=== PATIENT | female | born 1940 | race Caucasian/White ===

== ENCOUNTER 2018-02-17 14:28 | Inpatient (IN) ==
--- NOTE | 2018-02-17 15:10 | Emergency Department Note ---
Disposition Clinical Impression: Urinary tract infection Qualifiers: Urinary tract infection type: acute cystitis Hematuria presence: without hematuria Qualified Code(s): N30.00 - Acute cystitis without hematuria Disposition: Admitted As Inpatient Condition: Good Referrals: Julio Lizarraga Jr, MD [Primary Care Provider] - Forms: ED Satisfaction Letter Time of Disposition: 16:39 Female Urogenital HPI - General Chief complaint: ED Urogenital-Female Stated complaint: urinary symptoms Time Seen by Provider: 02/17/18 14:40 Source: patient Mode of arrival: ambulatory Limitations: no limitations, age Nursing Notes Reviewed: Yes Vital Signs Reviewed: Yes - History of Present Illness HPI Narrative: 77-year female who comes in complaining of urinary symptoms. She has been on 2 different antibiotics cultures done at her doctor's office state that the is only sensitive to IV antibiotics. The cultures were not done in our system we will try to get a hold of the doctor who did them and get the culture results. Pt Subjective Complaint: "UTI" Onset (ago): week(s) Location: suprapubic (2) Severity: mild, moderate Quality: burning Duration: constant Improves with: none Worsens with: urination Urinary Symptoms: dysuria, urgency, frequency - Related Data Allergies Allergy/AdvReac Type Severity Reaction Status Date / Time Sulfa (Sulfonamide Allergy Hives Verified 02/17/18 14:30 Antibiotics) All systems ED: reviewed and negative except as stated. Constitutional: Denies: fever, chills, weakness, weight change Eyes: Denies: eye pain, eye discharge, vision change ENT ED: Denies: ear pain, throat pain, dental pain, hearing loss, epistaxis, congestion, dysphagia Cardiovascular: Denies: chest pain, palpitations, dyspnea on exertion, edema, syncope Respiratory: Denies: cough, dyspnea, wheezes, hemoptysis, stridor Gastrointestinal: Denies: abdominal pain, nausea, vomiting, diarrhea, constipation, hematemesis, melena, hematochezia Genitourinary: Reports: dysuria, frequency, hematuria. Denies: discharge Musculoskeletal: Denies: back pain, neck pain, arthralgia, myalgia Integumentary: Denies: rash, abrasion, lesions Neurological: Denies: headache, weakness, numbness, paresthesias, confusion, abnormal gait, vertigo Psychiatric: Denies: anxiety, depression, suicidal thoughts, homicidal thoughts , auditory hallucinations, visual hallucinations Endocrine: Denies: fatigue Hematological/Lymphatic: Denies: easy bleeding, easy bruising Allergic/Immunologic: Denies: facial swelling, urticaria Physical Exam - General Limitations: no limitations General appearance: alert, in no apparent distress - Head Head exam: atraumatic, normocephalic, normal inspection - Eye Eye exam: Present: normal appearance, PERRL, EOMI - Expanded Eye Exam Pupils: Left: reactive - ENT ENT exam: normal exam, normal oropharynx, mucous membranes moist - Expanded ENT Exam External ear exam: Present: normal external inspection Mouth exam: Present: normal external inspection Teeth exam: Present: normal inspection Throat exam: Present: normal inspection - Neck Neck exam: Present: normal inspection, full ROM, trachea midline - Chest Chest inspection: Present: normal inspection, symmetric chest wall rise - Respiratory Respiratory exam: Present: normal lung sounds bilaterally - Cardiovascular Cardiovascular exam: Present: regular rate, normal rhythm, normal heart sounds - Abdominal Exam Abdominal exam: Present: soft, Non-Tender. Absent: tenderness, distention, guarding, rebound, rigidity - Extremities Exam Extremities exam: Present: normal inspection, full ROM. Absent: tenderness, pedal edema - Expanded Upper Extremity Exam Shoulder exam: Present: normal inspection, full ROM Arm exam: Present: normal inspection, full ROM Elbow exam: Present: normal inspection, full ROM Forearm/Wrist exam: Present: normal inspection, full ROM Hand exam: Present: normal inspection, full ROM Vascular exam: Normal: capillary refill, radial pulse - Expanded Lower Extremity Exam Hip/Pelvis exam: Present: normal inspection, full ROM Upper leg exam: Present: normal inspection, full ROM Knee exam: Present: normal inspection, full ROM Lower leg exam: Present: normal inspection, full ROM Ankle exam: Present: normal inspection, full ROM Foot/toe exam: Present: normal inspection, full ROM Neurovascular/Tendon exam: Absent: motor deficit, sensory deficit, tendon deficit - Back Exam Back exam: Present: normal inspection, full ROM. Absent: tenderness - Neurological Exam Neurological exam: Present: alert, oriented X3 - Expanded Neurological Exam Patient oriented to: Present: person, place, time Coma Scale Eye Opening: Spontaneous Coma Scale Motor Response: Obeys Commands Coma Scale Verbal Response: Oriented Coma Scale Total: 15 - Psychiatric Psychiatric exam: Present: normal affect, normal mood - Skin Skin exam: Present: warm, dry, intact, normal color Course - Reevaluation(s) Reevaluation #1: We were able to obtain the sensitivities of the urine on the patient is sent out to an outside lab. The only oral antibiotic the patient patient's urine is sensitive to is Bactrim and she is allergic to that. The patient grew out greater than 100,000 Providencia rettgeri. The patient's been treated outpatient 2 rounds of antibiotics without improvement. I did review her culture results which show she is not able to take any antibiotics orally. That is Tuesday afternoon were not able to arrange outpatient treatment until first of the week several bringer render IV Rocephin. Time: 16:37 - Consultations Consultation #1: Discussed with Dr.Seth salcedo. Time: 16:51 Vital Signs Temperature 97.7 F 02/17/18 14:30 Pulse Rate 75 02/17/18 14:30 Respiratory Rate 18 02/17/18 14:30 Blood Pressure 175/79 02/17/18 14:30 O2 Sat by Pulse Oximetry 97 02/17/18 14:30 Temperature 97.7 F 02/17/18 14:38 Pulse Rate 75 02/17/18 14:38 Respiratory Rate 18 02/17/18 14:38 Blood Pressure 175/79 02/17/18 14:38 O2 Sat by Pulse Oximetry 97 02/17/18 14:38 Oxygen Delivery Oxygen Delivery Room Air Urogenital-Female - Lab Data Lab results reviewed: Yes I reviewed the patient's lab results. Result diagrams: 02/17/18 15:17 02/17/18 15:17 Lab Results 02/17/18 02/17/18 02/17/18 Range/Units 14:45 15:17 15:17 WBC 6.5 (4.3-11.1) K/mcL RBC 4.07 (3.82-4.97) M/mcL Hgb 10.4 L (11.5-15.4) g/dL Hct 32.9 L (35.3-44.9) % MCV 80.8 L (83.0-100.0) fL MCH 25.6 L (28.0-33.3) pg MCHC 31.6 (31.6-35.5) g/dL RDW 14.6 H (11.5-14.5) % Plt Count 261 (140-400) K/mcL MPV 9.6 (9.4-12.4) fL Immature Gran % 0.3 (0-4) % Seg Neutrophils % 58.3 % Lymphocytes % 27.7 % Monocytes % 8.2 % Eosinophils % 4.6 % Basophils % 0.9 % Neutrophils # 3.8 (1.6-8.9) K/mcL Lymphocytes # 1.8 (0.6-4.6) K/mcL Monocytes # 0.5 (0.0-1.3) K/mcL Eosinophils # 0.3 (0.0-0.6) K/mcL Basophils # 0.1 (0.0-0.2) K/mcL Sodium 139 (136-145) mEq/L Potassium 4.2 (3.5-5.1) mEq/L Chloride 106 (98-107) mEq/L Carbon Dioxide 25 (23-29) mEq/L BUN 15 (8-23) mg/dL Creatinine 0.88 (0.60-1.20) mg/dL Est GFR ( Amer) > 60 (> 60) Est GFR (Non-Af Amer) > 60 (> 60) BUN/Creatinine Ratio 17 (6-26) Glucose 112 H (70-105) mg/dL Calculated Osmolality 290 (280-300) Calcium 9.6 (8.6-10.3) mg/dL Urine Color Yellow (Yellow) Urine Clarity Cloudy A (Clear) Urine pH 6.0 (5.0-8.0) pH Units Ur Specific [place] 1.014 (1.010-1.025) Urine Protein Negative (Neg-Trace) mg/dL Urine Glucose (UA) Normal (Normal) mg/dL Urine Ketones Negative (Negative) mg/dL Urine Blood Moderate H (Negative) Urine Nitrite Negative (Negative) Urine Bilirubin Negative (Negative) Urine Urobilinogen Normal (Normal) mg/dL Ur Leukocyte Esterase Large H (Negative) Urine Microscopic RBC 5-15 H (0-3) per hpf Urine Microscopic WBC TNTC H (0-3) per hpf Ur Squamous Epith Cells Moderate H (None-Few) per lpf Ur Renal Epithelial Cell Few (None-Few) per hpf Urine Bacteria Moderate H (None-Few) per hpf Ur Culture Indicated? YES A (NO)
[2018-02-17 15:26] LABS: Basophils # 0.1 K/mcL (0.0-0.2); Basophils % 0.9 %; Eosinophils # 0.3 K/mcL (0.0-0.6); Eosinophils % 4.6 %; Hematocrit 32.9 % (35.3-44.9); Hemoglobin 10.4 g/dL (11.5-15.4); Immature Granulocytes % 0.3 % (0-4); Lymphocytes # 1.8 K/mcL (0.6-4.6); Lymphocytes % 27.7 %; Mean Corpuscular HGB Conc 31.6 g/dL (31.6-35.5); Mean Corpuscular Hemoglobin 25.6 pg (28.0-33.3); Mean Corpuscular Volume 80.8 fL (83.0-100.0); Mean Platelet Volume 9.6 fL (9.4-12.4); Monocytes # 0.5 K/mcL (0.0-1.3); Monocytes % 8.2 %; Neutrophils # 3.8 K/mcL (1.6-8.9); Platelet Count 261 K/mcL (140-400); Red Blood Count 4.07 M/mcL (3.82-4.97); Red Cell Distribution Width 14.6 % (11.5-14.5); Segmented Neutrophils % 58.3 %
[2018-02-17 15:54] LABS: BUN/Creatinine Ratio 17 (6-26); Blood Urea Nitrogen 15 mg/dL (8-23); Calcium 9.6 mg/dL (8.6-10.3); Carbon Dioxide 25 mEq/L (23-29); Chloride 106 mEq/L (98-107); Glucose 112 mg/dL (70-105); Osmolality,Calculated 290 (280-300); Potassium 4.2 mEq/L (3.5-5.1); Sodium 139 mEq/L (136-145); eGFR For African Americans > 60 (> 60); eGFR For Non-African Americans > 60 (> 60)
[2018-02-17 16:19] LABS: Bilirubin,Urine Negative (Negative); Blood,Urine Moderate (Negative); Clarity,Urine Cloudy (Clear); Color,Urine Yellow (Yellow); Glucose,Urine (UA) Normal (Normal); Ketones,Urine Negative (Negative); Leukocyte Esterase,Urine Large (Negative); Nitrite,Urine Negative (Negative); Protein,Urine Negative (Neg-Trace); Specific Gravity,Urine 1.014 (1.010-1.025); Urobilinogen,Urine Normal (Normal)
[2018-02-17 16:35] LABS: Renal Epithelial Cells,Urine Few per hpf (None-Few); Squamous Epithelial Cell,Urine Moderate per lpf (None-Few)
[2018-02-17 16:36] LABS: WBC,Urine TNTC per hpf (0-3)
[2018-02-17 16:37] LABS: Bacteria,Urine Moderate per hpf (None-Few)
[2018-02-17] MEDS ORDERED: cefTRIAXone 1,000 MG in Water for inj. (sterile) 20 ML 10 ML IVP ONE (16:51)
[2018-02-17] MEDS ORDERED: Naloxone 0.4 MG/ML INJ IVP PRN (17:34)
--- NOTE | 2018-02-17 17:40 | Internal Med History&Physical ---
Date of Encounter: 02/17/18 Time of Encounter: 17:35 Internal Medicine - H&P: HPI Chief complaint: Urine complaint Admitted From: Home Plans for Post Hospital Care: Home History of present illness: Ms. Praksah is a 77 year old female with history of hypertension, hyperlipidemia, GERD, recurrent UTI but never got evaluated by urologist came to ER with complaint of persistent urinary symptoms even after having 2 different antibiotic courses on OPD basis possibly ciprofloxacin and cephalosporin. In ER vitals are stable with normal white count but abnormal urine analysis. ER physician collected the urine culture report ordered by PCP on Feb 14 2018 with bacteria, Providencia that is multi drug resistant especially oral antibiotic except Bactrim but patient is allergic to it. Therefore ER physician called on- call hospitalists for the admission of IV antibiotic and further evaluation. Patient has chronic urinary problem especially increased frequency and urgency but lately getting worse along with burning micturition. Patient denies fever, chills, vomiting, headache, dizziness, chest pain, shortness of breath, abdominal pain,bowel complaint. Sometime she get nausea, fatigue and generalized weakness Past Med Surg Social Fam HX - Past Medical History Medical history: hyperlipidemia, hypertension, TIA Psychiatric history: no psych history - Social History Smoking Status: Never smoker Smokeless Tobacco Status: No Alcohol use: none Drug use: none Internal Medicine - H&P: Meds Aspirin [Lo-Dose Aspirin EC] 81 mg PO DAILY 02/17/18 [History] Atorvastatin [Lipitor] 10 mg PO HS 02/17/18 [History] Esomeprazole Magnesium [Nexium] 40 mg PO DAILY 02/17/18 [History] Famotidine [Pepcid] 40 mg PO DAILY 02/17/18 [History] Labetalol [Trandate] 100 mg PO BID 02/17/18 [History] Olmesartan Medoxomil [Benicar] 40 mg PO DAILY 02/17/18 [History] 3 Allergy/AdvReac Type Severity Reaction Status Date / Time Sulfa (Sulfonamide Allergy Hives Verified 02/17/18 14:30 Antibiotics) All Systems PM: as documented above in the HPI. - Constitutional Vitals: Temp Pulse Resp BP Pulse Ox 97.7 F 68 15 192/84 98 02/17/18 14:38 02/17/18 17:16 02/17/18 17:16 02/17/18 17:16 02/17/18 17:16 Exam: General appearance: No acute distress, A&O X 3. Poor historian. Family at bedside Head exam: Atraumatic Eye exam: EOMI, PERRLA ENT exam: Moist oral mucosa Neck nontender, supple Respiratory exam: Clear to auscultation bilaterally Cardiovascular exam: Regular rate and rhythm, no systolic murmur Abdominal exam: Soft, nontender, nondistended, positive bowel sounds Extremities exam: No calf tenderness, no pedal edema Present: Skin-no rash, warm, dry, intact Neurological exam: Alert, awake, oriented 3, CN II-XII intact, no focal deficits. No facial droop. Normal speech. Normal gait. Internal Med - H&P Results - Labs CBC & Chem 7: 02/17/18 15:17 02/17/18 15:17 Labs: Short CBC 02/17/18 Range/Units 15:17 WBC 6.5 (4.3-11.1) K/mcL Hgb 10.4 L (11.5-15.4) g/dL Hct 32.9 L (35.3-44.9) % Plt Count 261 (140-400) K/mcL Neutrophils # 3.8 (1.6-8.9) K/mcL BMP 02/17/18 15:17 Sodium 139 Potassium 4.2 Chloride 106 Carbon Dioxide 25 BUN 15 Creatinine 0.88 Glucose 112 H Calcium 9.6 Urine 02/17/18 Range/Units 14:45 Urine Color Yellow (Yellow) Urine Clarity Cloudy A (Clear) Urine pH 6.0 (5.0-8.0) pH Units Ur Specific [place] 1.014 (1.010-1.025) Urine Protein Negative (Neg-Trace) mg/dL Urine Glucose (UA) Normal (Normal) mg/dL - Assessment and plan (1) UTI (urinary tract infection) Current Visit: Yes Status: Acute Assessment and plan: Recurrent UTI. Never got urology evaluation. At present persistent urinary symptom failed outpatient therapy with to round of antibiotic. Urine culture multi drug resistant organism. Started Rocephin IV. Urine culture and consulted urologists Qualifiers: Urinary tract infection type: site unspecified Hematuria presence: with hematuria Qualified Code(s): N39.0 - Urinary tract infection, site not specified; R31.9 - Hematuria, unspecified (2) Hypertension Current Visit: Yes Status: Chronic Assessment and plan: Close monitoring. Continue home medicine Qualifiers: Hypertension type: essential hypertension Qualified Code(s): I10 - Essential (primary) hypertension (3) Hyperlipidemia Current Visit: Yes Status: Acute Assessment and plan: Continue home medicine. stable Qualifiers: Hyperlipidemia type: unspecified Qualified Code(s): E78.5 - Hyperlipidemia , unspecified (4) DVT prophylaxis Current Visit: Yes Status: Acute Assessment and plan: SCDs - Time Spent With Patient Total time spent is greater than 50% in coordination of care (as documented) at patient's floor/unit and/or counseling patient: 25 - 35 minutes
[2018-02-18 05:36] LABS: Basophils % 0.6 %; Eosinophils # 0.3 K/mcL (0.0-0.6); Eosinophils % 4.5 %; Hematocrit 31.4 % (35.3-44.9); Immature Granulocytes % 0.3 % (0-4); Lymphocytes % 28.8 %; Mean Corpuscular HGB Conc 31.8 g/dL (31.6-35.5); Mean Corpuscular Hemoglobin 25.6 pg (28.0-33.3); Mean Corpuscular Volume 80.3 fL (83.0-100.0); Mean Platelet Volume 9.9 fL (9.4-12.4); Monocytes # 0.7 K/mcL (0.0-1.3); Monocytes % 9.7 %; Neutrophils # 3.8 K/mcL (1.6-8.9); Platelet Count 245 K/mcL (140-400); Red Blood Count 3.91 M/mcL (3.82-4.97); Red Cell Distribution Width 14.6 % (11.5-14.5); Segmented Neutrophils % 56.1 %
[2018-02-18 05:54] LABS: BUN/Creatinine Ratio 18 (6-26); Blood Urea Nitrogen 17 mg/dL (8-23); Calcium 9.4 mg/dL (8.6-10.3); Carbon Dioxide 27 mEq/L (23-29); Chloride 106 mEq/L (98-107); Glucose 99 mg/dL (70-105); Osmolality,Calculated 292 (280-300); Potassium 3.5 mEq/L (3.5-5.1); Sodium 140 mEq/L (136-145); eGFR For African Americans > 60 (> 60); eGFR For Non-African Americans 58 (> 60)
[2018-02-18] MEDS ORDERED: Famotidine 20 MG TABLET PO SCH (09:00)
--- NOTE | 2018-02-18 09:35 | Urology - Consult Note ---
Date of Encounter: 02/18/18 Time of Encounter: 09:33 - Assessment and Plan (1) Midline cystocele Current Visit: Yes Status: Acute Assessment and plan: Continue with pessary at this time. Patient is satisfied with the comfort level and improvement in her cystocele and rectocele with pessary. (2) UTI (urinary tract infection) Current Visit: Yes Status: Acute Assessment and plan: Patient now admitted secondary to multidrug resistant urinary tract infection. Only oral anabiotic the patient is sensitive to his Bactrim which she is allergic to. At this time I recommend full course treatment of 7-10 days of IV Rocephin. Patient will need to follow-up with me one month after this hospitalization. I have some question whether her recurrent infections are truly symptomatic infections as opposed to asymptomatic bacteriuria. This will be better evaluated on follow-up after complete resolution of this infection. Qualifiers: Urinary tract infection type: site unspecified Hematuria presence: with hematuria Qualified Code(s): N39.0 - Urinary tract infection, site not specified; R31.9 - Hematuria, unspecified (3) Postmenopausal state Current Visit: Yes Status: Acute Assessment and plan: Patient is postmenopausal at this time. This low estrogen state can sometimes contribute to patient's having recurrent urinary tract infections. May need to consider starting low dose estrogen as an outpatient. This will be discussed with the patient further at follow-up. (4) Nocturia Current Visit: Yes Status: Acute Assessment and plan: I question whether this nocturia is related to her infections. I plan on starting the patient on oxybutynin before bedtime to see if this will help with her symptoms. Patient will need to continue this medication upon discharge. Urology CN:YESSICA Consult date: 02/18/18 Reason for consult Urology: Other (recurrent uti) Requesting physician: Ct Juares History of present illness: Carol is a 77-year-old female who is admitted secondary to multidrug resistant urinary tract infection. Patient states that she has been treated for multiple infections over the past 1-2 years. She is now admitted secondary to a multidrug resistant infection which is resistant to oral antibiotics. She is currently on IV Rocephin. Patient states that when she has her infections she may have some bladder pressure. No fevers no burning no confusion. Patient does see Dr. Levin for a cystocele which she has a pessary in place. She has never been diagnosed with breast cancer or uterine cancer. Patient does state that she is up to void every 2 hours at night. This is been ongoing for the past 2-3 years. She has never taken medication for this. Past Med Surg Social Fam HX - Past Medical History Medical history: hyperlipidemia, hypertension, TIA Psychiatric history: no psych history - Social History Smoking Status: Never smoker Smokeless Tobacco Status: No Alcohol use: none Drug use: none Medications and Allergies Aspirin [Lo-Dose Aspirin EC] 81 mg PO DAILY 02/17/18 [History] Atorvastatin [Lipitor] 10 mg PO HS 02/17/18 [History] Esomeprazole Magnesium [Nexium] 40 mg PO DAILY 02/17/18 [History] Famotidine [Pepcid] 40 mg PO DAILY 02/17/18 [History] Labetalol [Trandate] 100 mg PO BID 02/17/18 [History] Olmesartan Medoxomil [Benicar] 40 mg PO DAILY 02/17/18 [History] 3 Allergy/AdvReac Type Severity Reaction Status Date / Time Sulfa (Sulfonamide Allergy Hives Verified 02/17/18 14:30 Antibiotics) Review of Systems - Constitutional no chills, no fever(s) - EENT Nose, mouth and throat: no dizziness, no throat swelling - Cardiovascular no chest pain, no diaphoresis, no dyspnea - Respiratory no cough - Gastrointestinal no abdominal pain, no nausea, no vomiting - Genitourinary Genitourinary: as per HPI - Musculoskeletal no back pain, no muscle weakness - Integumentary no erythema, no swelling - Neurological no confusion, no sensory deficit, no weakness - Psychiatric no anxiety, no depression - Hematologic/Lymphatic no easy bleeding, no lymphadenopathy - Allergic/Immunologic no throat swelling, no wheezing Exam Initial Vital Signs Temp Pulse Resp BP Pulse Ox 97.7 F 75 18 175/79 97 02/17/18 14:30 02/17/18 14:30 02/17/18 14:30 02/17/18 14:30 02/17/18 14:30 General/Neuological: alert and oriented x 3 Eyes: normal pupils, non-icteric Neck: no lymphadenopathy noted, supple to touch Cardiovascular: Regular rate and rhythm, no murmurs, no aortic distention on exam, no JVD Respiratory: Clear to auscultation bilaterally, no wheezing ABD: soft, nontender, no masses palpated, good bowel sounds Back: no pain on percussion bilaterally Skin: no rashes noted, nondiaphoretic Musculoskeletal: normal gait, FROMx4 Urology Results - Labs 02/18/18 04:50 02/18/18 04:50 Abnormal lab results Hgb 10.0 g/dL (11.5-15.4) L 02/18/18 04:50 Hct 31.4 % (35.3-44.9) L 02/18/18 04:50 MCV 80.3 fL (83.0-100.0) L 02/18/18 04:50 MCH 25.6 pg (28.0-33.3) L 02/18/18 04:50 RDW 14.6 % (11.5-14.5) H 02/18/18 04:50 Est GFR (Non-Af Amer) 58 (> 60) L 02/18/18 04:50 Urine Clarity Cloudy (Clear) A 02/17/18 14:45 Urine Blood Moderate (Negative) H 02/17/18 14:45 Ur Leukocyte Esterase Large (Negative) H 02/17/18 14:45 Urine Microscopic RBC 5-15 per hpf (0-3) H 02/17/18 14:45 Urine Microscopic WBC TNTC per hpf (0-3) H 02/17/18 14:45 Ur Squamous Epith Cells Moderate per lpf (None-Few) H 02/17/18 14:45 Urine Bacteria Moderate per hpf (None-Few) H 02/17/18 14:45 Ur Culture Indicated? YES (NO) A 02/17/18 14:45 Diabetes panel 02/18/18 Range/Units 04:50 Sodium 140 (136-145) mEq/L Potassium 3.5 (3.5-5.1) mEq/L Chloride 106 (98-107) mEq/L Carbon Dioxide 27 (23-29) mEq/L BUN 17 (8-23) mg/dL Creatinine 0.93 (0.60-1.20) mg/dL Glucose 99 (70-105) mg/dL Calcium 9.4 (8.6-10.3) mg/dL Calcium panel 02/18/18 Range/Units 04:50 Calcium 9.4 (8.6-10.3) mg/dL Pituitary panel 02/18/18 Range/Units 04:50 Sodium 140 (136-145) mEq/L Potassium 3.5 (3.5-5.1) mEq/L Chloride 106 (98-107) mEq/L Carbon Dioxide 27 (23-29) mEq/L BUN 17 (8-23) mg/dL Creatinine 0.93 (0.60-1.20) mg/dL Glucose 99 (70-105) mg/dL Calcium 9.4 (8.6-10.3) mg/dL Adrenal panel 02/18/18 Range/Units 04:50 Sodium 140 (136-145) mEq/L Potassium 3.5 (3.5-5.1) mEq/L Chloride 106 (98-107) mEq/L Carbon Dioxide 27 (23-29) mEq/L BUN 17 (8-23) mg/dL Creatinine 0.93 (0.60-1.20) mg/dL Glucose 99 (70-105) mg/dL Calcium 9.4 (8.6-10.3) mg/dL All other labs normal. Consult Discharge Plan - Plan Referrals: Julio Lizarraga Jr, MD [Primary Care Provider] -
[2018-02-18] MEDS: Aspirin Enteric Coated 81 MG Tablet PO SCH (10:07)
[2018-02-18] MEDS: cefTRIAXone 1,000 MG in Water for inj. (sterile) 20 ML 10 ML IVP SCH (10:08)
--- NOTE | 2018-02-18 14:05 | Internal Med Progress Note ---
Date of Encounter: 02/18/18 Time of Encounter: 14:04 - Assessment and plan (1) UTI (urinary tract infection) Current Visit: Yes Status: Acute Assessment and plan: Due to Providentia. Sensitive to cephalosporins but failed outpatient treatment with Omnicef. Evaluated by urology. Recommended 7-10 days of intravenous Rocephin. Could also be colonization and will need outpatient follow-up. Qualifiers: Urinary tract infection type: acute cystitis Hematuria presence: with hematuria Qualified Code(s): N30.01 - Acute cystitis with hematuria (2) Hypertension Current Visit: Yes Status: Chronic Assessment and plan: Uncontrolled. On labetalol, losartan. We will increase labetalol dosage to 200mg 3 times a day Qualifiers: Hypertension type: essential hypertension Qualified Code(s): I10 - Essential (primary) hypertension (3) Hyperlipidemia Current Visit: Yes Status: Chronic Assessment and plan: Continue atorvastatin Qualifiers: Hyperlipidemia type: mixed hyperlipidemia Qualified Code(s): E78.2 - Mixed hyperlipidemia (4) DVT prophylaxis Current Visit: Yes Status: Acute Assessment and plan: Will place patient on subcutaneous heparin - Time Spent With Patient Total time spent is greater than 50% in coordination of care (as documented) at patient's floor/unit and/or counseling patient: - Subjective Interval history: Patient is sitting up in chair. Feels better. No new complaints at this time. Having frequency urinary frequency but no dysuria or hematuria. No fever or chills reported overnight - Constitutional Vitals: Temp Pulse Resp BP Pulse Ox 97.7 F 90 16 179/69 96 02/18/18 10:45 02/18/18 10:45 02/18/18 10:45 02/18/18 10:45 02/18/18 10:45 General appearance: Present: cooperative, A&O X 3, answers questions appropriately - ENT Additional comments: difficulty hearing. - Neck Neck exam general surgery: Present: supple, trachea midline. Absent: lymphadenopathy - Respiratory Respiratory exam: Present: CTAB. Absent: accessory muscle use, rales, rhonchi, wheezes - Cardiovascular Cardiovascular exam: Present: RRR, +S1, +S2. Absent: diastolic murmur, gallop, rubs, systolic murmur - GI/Abdominal GI/Abdominal exam: Present: normal bowel sounds, soft, no peritoneal signs. Absent: distended, tenderness - Extremities Exam Extremities exam: Present: warm, radial pulses palpable and symmetrical. Absent : calf tenderness, cyanotic, pedal edema - Neurological Exam Neurological exam: Present: alert, oriented X3, no focal deficits. Absent: facial droop, speech deficit Internal Medicine: Result - Labs CBC & Chem 7: 02/18/18 04:50 02/18/18 04:50 Consult Discharge Plan - Plan Referrals: Julio Lizarraga Jr, MD [Primary Care Provider] -
[2018-02-18] MEDS: *HR* Heparin 5,000 UNIT/ML VIAL SQ SCH (18:41)
[2018-02-18] MEDS ORDERED: Ondansetron ODT 4 MG TAB.RAPDIS SL PRN (19:23)
[2018-02-19] MEDS: *HR* Heparin 5,000 UNIT/ML VIAL SQ SCH ×2 (10:23→18:04)
[2018-02-19] MEDS: cefTRIAXone 1,000 MG in Water for inj. (sterile) 20 ML 10 ML IVP SCH (10:34)
[2018-02-19] MEDS: Famotidine 20 MG TABLET PO SCH (10:35)
[2018-02-19] MEDS: Aspirin Enteric Coated 81 MG Tablet PO SCH (10:35)
--- NOTE | 2018-02-19 14:19 | Internal Med Progress Note ---
Date of Encounter: 02/19/18 Time of Encounter: 08:45 - Assessment and plan (1) UTI (urinary tract infection) Current Visit: Yes Status: Acute Assessment and plan: With providencia. Failed outpatient treatment. Will continue Rocephin. Evaluated by urology. Recommended 7-14 days of IV antibiotic therapy. We will make arrangements for this tomorrow. Patient appears to be clinically getting better. Qualifiers: Urinary tract infection type: acute cystitis Hematuria presence: with hematuria Qualified Code(s): N30.01 - Acute cystitis with hematuria (2) Hypertension Current Visit: Yes Status: Chronic Assessment and plan: Better control today. Continue current medications. Will monitor blood pressure closely. Qualifiers: Hypertension type: essential hypertension Qualified Code(s): I10 - Essential (primary) hypertension (3) Hyperlipidemia Current Visit: Yes Status: Chronic Assessment and plan: Continue atorvastatin Qualifiers: Hyperlipidemia type: mixed hyperlipidemia Qualified Code(s): E78.2 - Mixed hyperlipidemia (4) DVT prophylaxis Current Visit: Yes Status: Acute Assessment and plan: Continue subcutaneous heparin - Time Spent With Patient Total time spent is greater than 50% in coordination of care (as documented) at patient's floor/unit and/or counseling patient: - Subjective Interval history: Patient is awake and alert. Sitting up in chair. Feels much better overall. Denies any chest pain or palpitations. Blood pressure is better controlled. No headaches. Urinary frequency appears to be improving. - Constitutional Vitals: Temp Pulse Resp BP Pulse Ox 98.4 F 63 14 118/63 96 02/19/18 11:44 02/19/18 11:44 02/19/18 11:44 02/19/18 11:44 02/19/18 11:44 General appearance: Present: cooperative, A&O X 3, answers questions appropriately - Neck Neck exam general surgery: Present: supple, trachea midline. Absent: lymphadenopathy - Respiratory Respiratory exam: Present: CTAB. Absent: accessory muscle use, rales, rhonchi, wheezes - Cardiovascular Cardiovascular exam: Present: RRR, +S1, +S2. Absent: diastolic murmur, gallop, rubs, systolic murmur - GI/Abdominal GI/Abdominal exam: Present: normal bowel sounds, soft, no peritoneal signs. Absent: distended, tenderness - Extremities Exam Extremities exam: Present: warm, radial pulses palpable and symmetrical. Absent : calf tenderness, cyanotic, pedal edema - Neurological Exam Neurological exam: Present: alert, oriented X3, no focal deficits. Absent: facial droop, speech deficit - Skin Skin exam: Present: dry, intact Internal Medicine: Result - Labs CBC & Chem 7: 02/18/18 04:50 02/18/18 04:50 Consult Discharge Plan - Plan Referrals: Julio Lizarraga Jr, MD [Primary Care Provider] -
[2018-02-20] MEDS: *HR* Heparin 5,000 UNIT/ML VIAL SQ SCH (05:40)
[2018-02-20] MEDS: Aspirin Enteric Coated 81 MG Tablet PO SCH (08:53)
[2018-02-20] MEDS: Famotidine 20 MG TABLET PO SCH (08:53)
[2018-02-20] MEDS: cefTRIAXone 1,000 MG in Water for inj. (sterile) 20 ML 10 ML IVP SCH (08:54)
[2018-02-20 11:10] VITALS: BP 110/60
--- NOTE | 2018-02-20 12:23 | Discharge Summary ---
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 Was treated with IV Rocephin. Urine culture here grew mixed sarah. Evaluated by urology and recommended IV antibiotics for 7-10 days. Patient will be discharged today on IV Rocephin. She will follow up with her primary care provider for further management. Patient will also be referred to urology to evaluate her recurrent urinary tract infections further. Orders not resulted at time of discharge: Pending orders 02/19/18 20:45 Culture,Urine [RM] Stat Date of Encounter: 02/20/18 Time of Encounter: 12:21 - Discharge Diagnosis (1) UTI (urinary tract infection) Priority: Primary Status: Acute Qualifiers: Urinary tract infection type: acute cystitis Hematuria presence: with hematuria Qualified Code(s): N30.01 - Acute cystitis with hematuria (2) Hypertension Priority: Secondary Status: Chronic Qualifiers: Hypertension type: essential hypertension Qualified Code(s): I10 - Essential (primary) hypertension (3) Hyperlipidemia Priority: Secondary Status: Chronic Qualifiers: Hyperlipidemia type: mixed hyperlipidemia Qualified Code(s): E78.2 - Mixed hyperlipidemia (4) DVT prophylaxis Priority: Secondary Status: Acute Hospital course: Ms. Prakash is a 77 year old female patient with history of hypertension, hyperlipidemia and TIA who was hospitalized with recurrent urinary tract infection related to Providencia. She was started on IV Rocephin. She was evaluated by urology. They recommended IV antibiotics to treat this infection this time as patient has failed 2 different courses of oral antibiotics. There is a possibility that her urinary tract may be colonized by this organism. This will need further evaluation after her current antibiotic regimen. Patient will be referred to urology for this. She will be discharged today on IV Rocephin once this is arranged. Patient's blood pressure has been elevated here. She takes labetalol 100 mg 3 times a day at home. This has increased to 200 mg 3 times daily. Blood pressure has improved with this change. She will be discharged on this medication. She is also been placed on oxybutynin by urology for nocturia. So far she is tolerating this medication well. Discharge discussed with: patient - Time Spent with Patient Total time spent providing and/or coordinating discharge services: Greater than 30 minutes (40 min) - Discharge Medications Prescriptions: cefTRIAXone [Rocephin] 1,000 mg IVPB DAILY #10 vial Docusate [Colace] 100 mg PO BID PRN #30 capsule PRN Reason: Constipation Labetalol [Trandate] 200 mg PO TID #90 tablet Oxybutynin [Ditropan] 5 mg PO DAILY #30 tablet Home Medications: Aspirin [Lo-Dose Aspirin EC] 81 mg PO DAILY 02/17/18 [History] Atorvastatin [Lipitor] 10 mg PO HS 02/17/18 [History] Esomeprazole Magnesium [Nexium] 40 mg PO DAILY 02/17/18 [History] Olmesartan Medoxomil [Benicar] 40 mg PO DAILY 02/17/18 [History] Docusate [Colace] 100 mg PO BID PRN #30 capsule 02/20/18 [Rx] Labetalol [Trandate] 200 mg PO TID #90 tablet 02/20/18 [Rx] Oxybutynin [Ditropan] 5 mg PO DAILY #30 tablet 02/20/18 [Rx] cefTRIAXone [Rocephin] 1,000 mg IVPB DAILY #10 vial 02/20/18 [Rx] Allergies/Adverse Reactions: 3 Allergy/AdvReac Type Severity Reaction Status Date / Time Sulfa (Sulfonamide Allergy Hives Verified 02/17/18 14:30 Antibiotics) Date of admission: 02/18/18 12:13 Primary care physician: Julio Lizarraga Jr, MD Consults: 02/20/18 09:50 Consult to Invasive Line Access Team [CONS] Routine Reason for Consult: home iv antibiotics Line Type: EPIV Discharging clinician: Salvador Díaz Anticipated date of discharge: 02/20/18 - Constitutional Vitals: Temp Pulse Resp BP Pulse Ox 97.6 F 65 16 110/60 97 02/20/18 11:04 02/20/18 11:04 02/20/18 11:04 02/20/18 11:04 02/20/18 11:04 General appearance: Present: cooperative, A&O X 3, answers questions appropriately - Neck Neck exam general surgery: Present: supple, trachea midline. Absent: lymphadenopathy - Respiratory Respiratory exam: Present: CTAB. Absent: accessory muscle use, rales, rhonchi, wheezes - Cardiovascular Cardiovascular exam: Present: RRR, +S1, +S2. Absent: diastolic murmur, gallop, rubs, systolic murmur - GI/Abdominal GI/Abdominal exam: Present: normal bowel sounds, soft, no peritoneal signs. Absent: distended, tenderness - Extremities Exam Extremities exam: Present: warm, radial pulses palpable and symmetrical. Absent : calf tenderness, cyanotic, pedal edema - Neurological Exam Neurological exam: Present: alert, oriented X3, no focal deficits. Absent: facial droop, speech deficit - Patient Status Disposition: Home Health Service Condition: Good Functional capacity at discharge: independent ambulation Overall status at discharge: patient is progressing back to baseline - Discharge Instructions Instructions: Urinary Tract Infection in Women (DC) Follow Up With: Julio Lizarraga Jr, MD [Primary Care Provider] - (In 1 week) Jonathan Thayer MD [Partnered Physician] - (In 1-2 weeks) - Diet and Activity Activity: increase activity as tolerated Diet: low fat, low cholesterol, low salt diet
--- NOTE | 2018-02-20 13:50 | Physician Discharge Referral ---
Home Health/Hosp Referral Info Transfer to: Home Health Provider in Charge Post Discharge: PCP - Diagnosis (1) UTI (urinary tract infection) Priority: Primary Status: Acute (2) Hypertension Priority: Secondary Status: Chronic (3) Hyperlipidemia Priority: Secondary Status: Chronic (4) DVT prophylaxis Priority: Secondary Status: Acute - Respiratory Orders Smoking Cessation: Smoking cessation has been advised. For more information, call the [place] Tobacco Quit Line at 8-230-YIHW-NOW. - Diet/Nutrition Diet/Nutrition Orders: Cardiac - Activity Activity Orders: Ambulate, Walker - Services Needed Following services are medically necessary services: Nursing, Home Infusion - Transfer Medications Prescriptions: cefTRIAXone [Rocephin] 1,000 mg IVPB DAILY #10 vial Docusate [Colace] 100 mg PO BID PRN #30 capsule PRN Reason: Constipation Labetalol [Trandate] 200 mg PO TID #90 tablet Oxybutynin [Ditropan] 5 mg PO DAILY #30 tablet Home Medications: Aspirin [Lo-Dose Aspirin EC] 81 mg PO DAILY 02/17/18 [History] Atorvastatin [Lipitor] 10 mg PO HS 02/17/18 [History] Esomeprazole Magnesium [Nexium] 40 mg PO DAILY 02/17/18 [History] Olmesartan Medoxomil [Benicar] 40 mg PO DAILY 02/17/18 [History] Docusate [Colace] 100 mg PO BID PRN #30 capsule 02/20/18 [Rx] Labetalol [Trandate] 200 mg PO TID #90 tablet 02/20/18 [Rx] Oxybutynin [Ditropan] 5 mg PO DAILY #30 tablet 02/20/18 [Rx] cefTRIAXone [Rocephin] 1,000 mg IVPB DAILY #10 vial 02/20/18 [Rx] Allergies/Adverse Reactions: 3 Allergy/AdvReac Type Severity Reaction Status Date / Time Sulfa (Sulfonamide Allergy Hives Verified 02/17/18 14:30 Antibiotics) Certification: Further, I certify that my clinical findings support that this patient is homebound (i.e. absences from home require considerable and taxing effort and are for medical reasons or baptism services or infrequently or short duration when for other reasons) because: Homebound Reason: Patient requires assistance of a person or device to safely leave home (Patient needs home IV antibiotics) Attestation: My signature below is to certify that this patient is under my care and that I, or nurse practitioner, or a physician's assistant media planner working with me, has a face-to -face encounter with this patient.
== END 2018-02-20 15:25 | disposition home health service (06) | DRG 690 ==
LOC: 3ANU 14:28 → EMEROO 14:28 → SUATTDRO 18:18 → 3ANU 18:50
PROVIDERS: ADMIT General Practice; ATTEND Internal Medicine

== ENCOUNTER 2022-01-24 20:55 | Inpatient (IN) ==
[2022-01-24] MEDS ORDERED: Isovue-370 500 ML BOTTLE IVP ONE (21:09)
[2022-01-24 21:31] LABS: Hematocrit 36.6 % (35.3-44.9); Hemoglobin 11.8 g/dL (11.5-15.4); Mean Corpuscular HGB Conc 32.2 g/dL (31.6-35.5); Mean Corpuscular Hemoglobin 28.2 pg (28.0-33.3); Mean Corpuscular Volume 87.6 fL (83.0-100.0); Mean Platelet Volume 9.5 fL (9.4-12.4); Platelet Count 276 K/mcL (140-400); Red Blood Count 4.18 M/mcL (3.82-4.97); White Blood Count 6.4 K/mcL (4.3-11.1)
[2022-01-24 21:44] LABS: INR 0.9; Prothrombin Time 10.3 Seconds (9.4-12.1)
[2022-01-24 21:46] LABS: Activated Partial Thrombo Time 35.8 Seconds (26.0-36.0)
[2022-01-24 21:51] LABS: Alanine Aminotransferase 14 Units/L (7-52); Albumin 4.4 g/dL (3.5-5.7); Albumin/Globulin Ratio 1.5 (1.1-2.2); Alkaline Phosphatase 65 Units/L (34-104); Aspartate Amino Transferase 16 Units/L (13-39); BUN/Creatinine Ratio 26 (6-26); Bilirubin,Direct 0.1 mg/dL (0.0-0.2); Bilirubin,Indirect 0.3 mg/dL (0.0-1.0); Bilirubin,Total 0.4 mg/dL (0.3-1.0); Blood Urea Nitrogen 26 mg/dL (8-23); Carbon Dioxide 29 mEq/L (23-29); Chloride 103 mEq/L (98-107); Glucose 106 mg/dL (70-105); Osmolality,Calculated 293 (280-300); Potassium 4.2 mEq/L (3.5-5.1); Sodium 139 mEq/L (136-145); Total Protein 7.4 g/dL (6.4-8.9); Troponin I < 0.03 ng/mL (< 0.04); eGFR For African Americans > 60 (> 60); eGFR For Non-African Americans 52 (> 60)
[2022-01-25] MEDS ORDERED: Naloxone 0.4 MG/ML INJ IVP PRN (00:09)
[2022-01-25] MEDS ORDERED: Ondansetron 4 MG/2 ML VIAL IVP PRN (00:09)
[2022-01-25] MEDS ORDERED: Perflutren Lipid Microsphere 1.3 ML in 0.9 % Sodium Chloride 8.7 ML IVP PRN (00:13)
[2022-01-25 00:31] LABS: Bacteria,Urine Few per hpf (None-Few); Bilirubin,Urine Negative (Negative); Blood,Urine Negative (Negative); Clarity,Urine Turbid (Clear); Color,Urine Light-Yellow (Yellow); Glucose,Urine (UA) Normal (Normal); Ketones,Urine Negative (Negative); Leukocyte Esterase,Urine Large (Negative); Mucus,Urine Few per lpf (None-Few); Nitrite,Urine Negative (Negative); PH,Urine 6.5 pH Units (5.0-8.0); Protein,Urine Trace mg/dL (Neg-Trace); Specific Gravity,Urine 1.024 (1.010-1.025); Squamous Epithelial Cell,Urine Moderate per hpf (None-Few); Urobilinogen,Urine Normal (Normal); WBC,Urine TNTC per hpf (0-3)
[2022-01-25 00:38] LABS: Amphetamine Screen,Urine Negative ng/mL (Cutoff=1000); Barbiturate Screen,Urine Negative ng/mL (Cutoff=200); Benzodiazepines Screen,Urine Negative ng/mL (Cutoff=200); Cannabinoid Screen,Urine Negative ng/mL (Cutoff = 50); Cocaine Screen,Urine Negative ng/mL (Cutoff= 300); Opiate Screen,Urine Negative ng/mL (Cutoff=300); Phencyclidine Screen,Urine Negative ng/mL (Cutoff=25)
[2022-01-25] MEDS ORDERED: cefTRIAXone 1,000 MG in 0.9 % Sodium Chloride 10 ML IVPB SCH (01:00)
[2022-01-25] MEDS: cefTRIAXone 1,000 MG in 0.9 % Sodium Chloride 10 ML IVP SCH (02:22)
[2022-01-25 03:32] LABS: Basophils % 0.5 %; Eosinophils # 0.2 K/mcL (0.0-0.6); Eosinophils % 3.6 %; Hematocrit 35.1 % (35.3-44.9); Hemoglobin 11.2 g/dL (11.5-15.4); Immature Granulocytes % 0.2 % (0-4); Lymphocytes % 31.9 %; Mean Corpuscular HGB Conc 31.9 g/dL (31.6-35.5); Mean Corpuscular Hemoglobin 27.8 pg (28.0-33.3); Mean Corpuscular Volume 87.1 fL (83.0-100.0); Mean Platelet Volume 9.5 fL (9.4-12.4); Monocytes # 0.7 K/mcL (0.0-1.3); Monocytes % 10.2 %; Neutrophils # 3.4 K/mcL (1.6-8.9); Platelet Count 240 K/mcL (140-400); Red Blood Count 4.03 M/mcL (3.82-4.97); Red Cell Distribution Width 12.7 % (11.5-14.5); Segmented Neutrophils % 53.6 %; White Blood Count 6.4 K/mcL (4.3-11.1)
[2022-01-25 03:41] LABS: Prothrombin Time 10.9 Seconds (9.4-12.1)
[2022-01-25 04:21] LABS: Folate > 22.3 ng/mL (3.0-16.0); Vitamin B12 600 pg/mL (250-1100)
[2022-01-25] MEDS: Acetaminophen 325 MG TABLET PO PRN (04:54)
[2022-01-25 05:19] LABS: BUN/Creatinine Ratio 25 (6-26); Blood Urea Nitrogen 20 mg/dL (8-23); Calcium 9.5 mg/dL (8.6-10.3); Carbon Dioxide 26 mEq/L (23-29); Chloride 104 mEq/L (98-107); Chol/HDL Ratio 3.1 (0-4.9); Cholesterol 166 mg/dL (< 200); Glucose 98 mg/dL (70-105); HDL Cholesterol 53 mg/dL (40-59); LDL Cholesterol,Calculated 101 mg/dL (< 100); Osmolality,Calculated 293 (280-300); Potassium 3.8 mEq/L (3.5-5.1); Sodium 140 mEq/L (136-145); Thyroid Stimulating Hormone 1.427 mcIU/mL (0.340-5.600); Triglycerides 58 mg/dL (< 150); eGFR For African Americans > 60 (> 60); eGFR For Non-African Americans > 60 (> 60)
[2022-01-25 06:51] LABS: Estimated Average Glucose 108 mg/dl; Hemoglobin A1C 5.4 %
[2022-01-25] MEDS: Aspirin Enteric Coated 81 MG Tablet PO SCH (10:43)
[2022-01-25] MEDS: *HR* Heparin 5,000 UNIT/ML VIAL SQ SCH (17:16)
[2022-01-26] MEDS ORDERED: Melatonin 3 MG TABLET PO ONE (00:24)
[2022-01-26] MEDS: Acetaminophen 325 MG TABLET PO PRN (00:24)
[2022-01-26] MEDS: *HR* Heparin 5,000 UNIT/ML VIAL SQ SCH (06:14)
[2022-01-26 06:40] VITALS: TEMP 97.6
[2022-01-26] MEDS: cefTRIAXone 1,000 MG in 0.9 % Sodium Chloride 10 ML IVP SCH (08:06)
[2022-01-26] MEDS: Aspirin Enteric Coated 81 MG Tablet PO SCH ×2 (08:06→08:24)
[2022-01-26] MEDS: lisinopriL 20 MG TABLET PO SCH ×2 (08:06→08:45)
[2022-01-26] MEDS: rOPINIRole 0.25 MG TABLET PO SCH ×2 (08:06→08:45)
[2022-01-26 10:52] VITALS: PULSE 70; O2SAT 95
[2022-01-26 11:36] VITALS: BP 153/68
== END 2022-01-26 13:05 | disposition home health service (06) | DRG 69 ==
LOC: EMEROOARM 20:55 → 3BNU 20:55 → SUATTDRO 23:33 → 3BNU 01-25 00:30
PROVIDERS: ADMIT Internal Medicine; ATTEND Internal Medicine